=== PATIENT | female | born 1990 | race Caucasian/White ===

== ENCOUNTER 2023-03-03 11:34 | Outpatient (CLI) | payer BC, SELFPAY ==
[2023-03-08 07:22] LABS: Progesterone 15.2 ng/mL (***)
== END 2023-03-03 11:35 | disposition home or self-care (01) ==
PROVIDERS: Visit Provider Obstetrics & Gynecology
DX: Z34.91 Encounter for supervision of normal pregnancy, unspecified, first trimester (principal)
CPT/HCPCS: 36415; 84144; 84702

== ENCOUNTER 2023-08-16 16:38 | Outpatient (RCR) | payer BC, SELFPAY ==
[2023-08-19] MEDS: RHO(D) IMMUNE GLOBULIN 300 MCG/2 ML SYRINGE IM (13:39)
== END 2023-11-14 23:59 | disposition home or self-care (01) ==
LOC: ANHLAB 16:38
PROVIDERS: PCP Family Medicine; Visit Provider Obstetrics & Gynecology
DX: Z29.13 Encounter for prophylactic Rho(D) immune globulin (principal); O36.0190 Maternal care for anti-D [Rh] antibodies, unspecified trimester, not applicable or unspecified; Z3A.00 Weeks of gestation of pregnancy not specified
CPT/HCPCS: 36415; 85461; 86850; 86900; 86901; 90384; 96372; J2790

== ENCOUNTER 2023-10-04 10:47 | Outpatient (CLI) | payer BC, SELFPAY ==
[2023-10-04 11:12] VITALS: BP 137/78; PULSE 76
[2023-10-04 11:15] VITALS: BP 138/75; PULSE 78
[2023-10-04 11:18] LABS: Basophils Percent Auto 0.3 % (0.2-1.2); Eosinophils Percent Auto 0.5 % (0-4.4); Hematocrit 34.6 % (37.0-47.0); Hemoglobin 11.2 g/dL (12.0-15.0); Immature Granulocyte Absolute 0.02 K/mm3 (0.00-0.031); Immature Granulocyte Percent A 0.3 % (0-0.5); Lymphocytes Absolute Auto 1.11 K/mm3 (0.9-3.2); Lymphocytes Percent Auto 18.5 % (18.3-44.2); Mean Corpuscular HGB Conc 32.4 g/dl (32-36); Mean Corpuscular Hemoglobin 29.8 pg (26-34); Mean Platelet Volume 10.6 fl (7.4-10.4); Monocytes Absolute Auto 0.6 K/mm3 (0.1-0.6); Monocytes Percent Auto 9.2 % (2.6-8.5); Neutrophils Absolute Auto 4.3 K/mm3 (1.3-6.7); Neutrophils Percent Auto 71.2 % (45.5-73.1); Platelet Count Result 260 k/mm3 (150-375); Red Blood Count 3.76 M/mm3 (4.2-5.4); Red Cell Distribution Width 13.1 % (11.5-14.5)
[2023-10-04 11:20] LABS: Add Urine Microscopic? NO; Appearance Urine Clear (Clear); Bilirubin Urine Negative (Negative); Blood Urine Negative (Negative); Color Urine Yellow (Yellow); Glucose Urine UA Negative (Negative); Ketones Urine Negative (Negative); Leukocyte Esterase Ur Negative LEU/UL (Negative); Nitrate Urine Negative (Negative); Protein Urine Negative (Negative); Specific Grav Ur 1.004 (1.001-1.035); Urobilinogen Urine 0.2 mg/dL (<2.0)
[2023-10-04 11:30] VITALS: BP 137/74; PULSE 79
[2023-10-04 11:38] LABS: Alanine Aminotransferase 15 U/L (6-35); Albumin Level 3.6 g/dL (3.5-5.1); Alkaline Phosphatase 87 U/L (38-126); Anion Gap 10 mmol/L (4-12); Aspartate Amino Transferase 26 U/L (14-36); Bilirubin,Total 0.3 mg/dL (0.2-1.3); Blood Urea Nitrogen 10 mg/dL (7-17); Calcium 8.5 mg/dL (8.4-10.2); Carbon Dioxide 23 mmol/L (22-30); Chloride 103 mmol/L (98-107); Estimated Glomerular Filt Rate > 60; Glucose 82 mg/dL (65-110); Potassium 3.5 mmol/L (3.4-5.0); Sodium 136 mmol/L (137-145); Uric Acid 3.8 mg/dL (2.5-7.5)
[2023-10-04 11:53] LABS: Creatinine Urine 24.7 mg/dL; Total Protein Urine Random 12 mg/dL; Ur Ttl Prot Creatinine Ratio 0.49 mg/mg (0-0.20)
[2023-10-04 12:00] VITALS: BP 135/82; PULSE 72
[2023-10-04 13:23] VITALS: BP 138/75; PULSE 71; BMI 29.2
== END 2023-10-04 12:15 | disposition home or self-care (01) ==
LOC: ANHOBOP 10:52 → ANHOBPP 10:56
PROVIDERS: PCP Family Medicine; Visit Provider Obstetrics & Gynecology
DX: O13.9 Gestational [pregnancy-induced] hypertension without significant proteinuria, unspecified trimester (principal)
CPT/HCPCS: 36415; 59025; 80053; 81003; 82570; 84156; 84550; 85025; 99199

== ENCOUNTER 2023-10-05 17:45 | Outpatient (CLI) | payer BC, SELFPAY ==
[2023-10-05 17:53] VITALS: BMI 29.2
[2023-10-05 18:06] LABS: Collection Time Urine 24 HOURS
[2023-10-05 19:05] LABS: Total Volume 24 Hour Urine 3000 ml
[2023-10-05 19:18] LABS: Total Protein Urine 24 Hr 270 mg/24hr (28-141); Total Protein Urine Random 9 mg/dL
[2023-10-05 19:19] LABS: Creatinine Urine 68.9 mg/dL; Patient Weight 216 Lbs
[2023-10-05 19:35] LABS: Creatinine Clearance Urine 141.5 ml/min (75-125); Total Volume 24 Hour Urine 3000 ml
== END 2023-10-05 17:46 | disposition home or self-care (01) ==
LOC: ANHOBOP 17:49
PROVIDERS: PCP Family Medicine; Visit Provider Obstetrics & Gynecology
DX: O13.9 Gestational [pregnancy-induced] hypertension without significant proteinuria, unspecified trimester (principal)
CPT/HCPCS: 81050; 82575; 84156

== ENCOUNTER 2023-10-19 15:55 | Outpatient (CLI) | payer BC, SELFPAY ==
[2023-10-19] VITALS (9 sets, daily range): BP systolic 124–140; BP diastolic 69–85; PULSE 68–77
[2023-10-19 16:39] LABS: Basophils Percent Auto 0.3 % (0.2-1.2); Eosinophils Absolute Auto 0.1 K/mm3 (0-0.3); Eosinophils Percent Auto 0.7 % (0-4.4); Hematocrit 32.2 % (37.0-47.0); Hemoglobin 10.6 g/dL (12.0-15.0); Immature Granulocyte Absolute 0.01 K/mm3 (0.00-0.031); Immature Granulocyte Percent A 0.1 % (0-0.5); Lymphocytes Absolute Auto 1.56 K/mm3 (0.9-3.2); Lymphocytes Percent Auto 22.3 % (18.3-44.2); Mean Corpuscular HGB Conc 32.9 g/dl (32-36); Mean Corpuscular Hemoglobin 29.1 pg (26-34); Mean Corpuscular Volume 88.5 fl (80-100); Mean Platelet Volume 10.6 fl (7.4-10.4); Monocytes Absolute Auto 0.7 K/mm3 (0.1-0.6); Monocytes Percent Auto 9.3 % (2.6-8.5); Neutrophils Absolute Auto 4.7 K/mm3 (1.3-6.7); Neutrophils Percent Auto 67.3 % (45.5-73.1); Platelet Count Result 250 k/mm3 (150-375); Red Blood Count 3.64 M/mm3 (4.2-5.4); Red Cell Distribution Width 12.9 % (11.5-14.5)
[2023-10-19 16:45] LABS: Add Urine Microscopic? YES; Appearance Urine Cloudy (Clear); Bacteria Urine 1+ /hpf; Bilirubin Urine Negative (Negative); Blood Urine Negative (Negative); Color Urine Yellow (Yellow); Glucose Urine UA Negative (Negative); Ketones Urine Negative (Negative); Leukocyte Esterase Ur 3+ LEU/UL (Negative); Need Manual Microscopic Reviewed; Nitrate Urine Negative (Negative); Non Pathogenic Casts 0-2; Protein Urine Negative (Negative); RBC Urine 0-2 /hpf (0-2); Specific Grav Ur 1.006 (1.001-1.035); Squamous Epithelial Cell Urine Many /hpf (Few); Urobilinogen Urine 0.2 mg/dL (<2.0); WBC Urine 0-5 /hpf (0-3)
[2023-10-19 16:56] LABS: Alanine Aminotransferase 12 U/L (6-35); Albumin Level 3.4 g/dL (3.5-5.1); Alkaline Phosphatase 96 U/L (38-126); Anion Gap 8 mmol/L (4-12); Aspartate Amino Transferase 27 U/L (14-36); Bilirubin,Total 0.2 mg/dL (0.2-1.3); Blood Urea Nitrogen 10 mg/dL (7-17); Calcium 8.6 mg/dL (8.4-10.2); Carbon Dioxide 20 mmol/L (22-30); Chloride 105 mmol/L (98-107); Estimated Glomerular Filt Rate > 60; Glucose 125 mg/dL (65-110); Potassium 3.6 mmol/L (3.4-5.0); Sodium 133 mmol/L (137-145)
[2023-10-19 18:03] LABS: Total Protein Urine Random 14 mg/dL; Ur Ttl Prot Creatinine Ratio 0.36 mg/mg (0-0.20)
== END 2023-10-19 18:10 | disposition home or self-care (01) ==
LOC: ANHOBOP 16:03 → ANHOBPP 16:04
PROVIDERS: PCP Family Medicine; Visit Provider Obstetrics & Gynecology
DX: O13.9 Gestational [pregnancy-induced] hypertension without significant proteinuria, unspecified trimester (principal); Z3A.00 Weeks of gestation of pregnancy not specified
CPT/HCPCS: 36415; 59025; 80053; 81001; 82570; 84156; 84550; 85025; 87086; 99199

== ENCOUNTER 2023-10-25 15:47 | Inpatient (IN) | payer BC, SELFPAY ==
[2023-10-25] VITALS (13 sets, daily range): BP systolic 133–159; BP diastolic 85–92; PULSE 65–90; TEMP 36.8–37.1; BMI 29.2
[2023-10-25 16:31] LABS: Basophils Percent Auto 0.3 % (0.2-1.2); Eosinophils Percent Auto 0.4 % (0-4.4); Hematocrit 34.9 % (37.0-47.0); Hemoglobin 11.5 g/dL (12.0-15.0); Immature Granulocyte Absolute 0.02 K/mm3 (0.00-0.031); Immature Granulocyte Percent A 0.3 % (0-0.5); Lymphocytes Absolute Auto 1.44 K/mm3 (0.9-3.2); Lymphocytes Percent Auto 18.9 % (18.3-44.2); Mean Corpuscular Volume 88.1 fl (80-100); Mean Platelet Volume 10.7 fl (7.4-10.4); Monocytes Absolute Auto 0.5 K/mm3 (0.1-0.6); Neutrophils Absolute Auto 5.7 K/mm3 (1.3-6.7); Neutrophils Percent Auto 74.1 % (45.5-73.1); Platelet Count Result 284 k/mm3 (150-375); Red Blood Count 3.96 M/mm3 (4.2-5.4); Red Cell Distribution Width 13.1 % (11.5-14.5); White Blood Count 7.6 K/mm3 (4.5-10.0)
[2023-10-25] MEDS: DINOPROSTONE 10 MG VAG INSERT VAGINAL (16:57)
--- NOTE | 2023-10-25 17:05 | P.PNAN_ITS ---
Anes - Eval Pre Procedure Procedure: Labor epidural Date/Time: 10/25/23 17:05 Surgeon: Blanca Preop Diagnosis: Abdominal pain with contractions Pre Op Diagnosis: IOL Patient Data Age: 32 Gender: F Height: 1.83 m Weight: 98 kg Last Vital Signs Pulse 90 10/25/23 16:45 BP 136/86 10/25/23 16:45 Allergies Allergy/AdvReac Type Severity Reaction Status Date / Time No Known Allergies Allergy Verified 08/19/23 13:39 Home Medications Medication Instructions Recorded Confirmed Type prenat.vits,yadira,ude-jbnl-yytqe 1 tablet 10/14/23 History Laboratory Tests 10/25/23 16:26 WBC 7.6 K/mm3 (4.5-10.0) RBC 3.96 L M/mm3 (4.2-5.4) Hgb 11.5 L g/dL (12.0-15.0) Hct 34.9 L % (37.0-47.0) MCV 88.1 fl (80-100) MCH 29.0 pg (26-34) MCHC 33.0 g/dl (32-36) RDW 13.1 % (11.5-14.5) Plt Count 284 k/mm3 (150-375) MPV 10.7 H fl (7.4-10.4) Immature Gran % (Auto) 0.3 % (0-0.5) Neut % (Auto) 74.1 H % (45.5-73.1) Lymph % (Auto) 18.9 % (18.3-44.2) [place] % (Auto) 6.0 % (2.6-8.5) Eos % (Auto) 0.4 % (0-4.4) Baso % (Auto) 0.3 % (0.2-1.2) Lymph # (Auto) 1.44 K/mm3 (0.9-3.2) [place] # (Auto) 0.5 K/mm3 (0.1-0.6) Eos # (Auto) 0.0 K/mm3 (0-0.3) Baso # (Auto) 0.0 K/mm3 (0.0-0.1) Abs Immat Gran (auto) 0.02 K/mm3 (0.00-0.031) Absolute Neuts (auto) 5.7 K/mm3 (1.3-6.7) Absolute Nucleated RBC 0.000 K/mm3 (0.0-0.012) Nucleated RBC % 0.0 % (0.0-0.2) RPR Pending HIV 1&2 Ab/P24 Ag 4thGn Pending Blood Type A Negative Antibody Screen Pending : gestational age HCG: positive Patient hx anesthesia problems: none Family hx anesthesia problems: none Results Review: All pre-operative results and documents have been reviewed as part of the pre- operative evaluation. [facility] Past Medical History Medical History Gestational hypertension Murmur Overweight (BMI 25.0-29.9) and not yet delivered Family History Family History Father Hypertension Social History Social History Smoking status: Never smoker Substance use: never Do You Feel Safe in your Home?: Yes Lack of Transportation: No Lack of Food: Never True Current Housing: I Have Housing Concerned About Future Housing: No Difficulty Paying Gas/Electric Bills: No Difficulty Paying for Meds: No Currently Unemployed: No Education: Bachelor's Degree Difficulty w/ Childcare or Family Care: No Spiritual care concerns: No Exam Day of Procedure 10/25/23 17:05 Patient weight: overweight Airway: Mallampati scale class II
[2023-10-25 17:26] LABS: HIV 1/2 Ab P24 Ag Result Negative (Negative)
[2023-10-25] MEDS: LACTATED RINGERS 1,000 ML 125 ML IV CONT (17:29)
[2023-10-25] MEDS: AMPICILLIN 2 GM/NS 100 ML 2 GM/100 ML BAG IVPB (17:29)
[2023-10-25 18:14] LABS: Rapid Plasma Reagin Non-Reactive (NonReactive)
[2023-10-25] MEDS: AMPICILLIN 1 GM/NS 50 ML 1 GM/50 ML BAG IVPB (21:32)
[2023-10-26] VITALS (149 sets, daily range): BP systolic 116–160; BP diastolic 64–100; PULSE 25–227; RESP 18; TEMP 36.3–37.1; O2SAT 84–100
[2023-10-26] MEDS: AMPICILLIN 1 GM/NS 50 ML 1 GM/50 ML BAG IVPB ×4 (01:37→13:33)
[2023-10-26] MEDS: OXYTOCIN 30 UNITS/NS 500 ML 30 UNITS/500 ML BAG IV CONT (05:34)
[2023-10-26] MEDS: LACTATED RINGERS 1,000 ML 125 ML IV CONT ×2 (07:50→09:24)
--- NOTE | 2023-10-26 09:21 | WPDOBADMIT ---
Obstetrics - Admit Note Admission Note: record reviewed. Additions to the history and/or subsequent changes in the physical findings follow. 32 y/o at 39 1/7 weeks here for induction of labor. Cervidil overnight, has been withdrawn. Now receiving oxytocin. Receiving ampicillin for GBS colonization. EFW 6# four weeks ago First baby born at 37 weeks, induced for HTN, weighing 6#13oz. Rh neg and rubella nonimmune. AVSS NST reactive TOCO: contractions irregularly ABD soft, nontender, gravid, vertex EXT nontender Cervix 2-3/50/-2. Vertex. AROM with clear fluid. IUPC placed. A: IUP at term, here for induction of labor. P: Oxytocin. Anticipate .
--- NOTE | 2023-10-26 12:22 | PM.OBPNLAB ---
Pain Control Date/time seen: 10/26/23 12:22 Comments: Comfortable with epidurdal. Pelvic Exam Dilation (cm): 4 Effacement (%): 50 station: -2 Contractions Contraction frequency: 3 Contraction pattern: Regular Status status: Category l Assessment and Plan Comments: Continue labor.
[2023-10-26] MEDS: ONDANSETRON INJ 4 MG/2 ML VIAL IV PUSH (15:25)
--- NOTE | 2023-10-26 16:03 | PM.OBPRVD ---
OB - Vaginal Delivery Note Procedure Delivery date: 10/26/23 Events: Positive Group B Strep (GBS) Induction method: Per Cervidil Protocol Delivery augmentation: Rupture of Membranes and Pitocin Delivery monitor: External FHT, External Uterine and Internal Uterine Route of delivery: Episiotomy description: None Laceration Description: Perineal - 2nd Degree Delivery repair: vicryl (3-0) Specimen: Yes Quantitative Blood Loss (ml): 220 Anesthesia type: Epidural Disposition: PACU Complications: None Narrative: 32 y/o at 39 1/7 weeks gestation who presented to the hospital for induction of labor. Cervidil was placed overnight, then withdrawn in the morning. She received ampicillin for GBS colonization. Oxytocin was administered intravenously. Amniotomy was performed with return of clear fluid. She received an epidural for pain control. Her labor progressed and her cervix dilated completely. She pushed with good effort and delivered the 's head to the perineum, followed by the body. The nose and mouth were bulb suctioned. After a delay, the cord was clamped and cut. The was handed off the field. Cord blood was collected. The placenta delivered spontaneously and was grossly normal in appearance. The usual 3 vessel cord was noted. A second degree midline perineal laceration was sustained. This was reapproximated using 3 0 Vicryl in the usual layered fashion. Excellent hemostasis resulted as did excellent reapproximation of the normal anatomy. Needle and instrument counts were correct. The patient was taken to recovery room in stable condition. The infant went to the nursery in stable condition. I was present and scrubbed for the entire delivery. Baby Date of : 10/26/23 Time of : 15:48 Gestational Age by Date: 39 gender: Male presentation: vertex position: Left Occiput Anterior Placenta delivery description: Spontaneous and Normal Configuration Cord Vessel Description: 3 Vessels and Delayed Cord Clamping score one minute: 8 score five minutes: 9
--- NOTE | 2023-10-26 16:03 | PM.OBDSVD ---
DS: Admitting Diagnosis Discharge Date 10/28/2023 <Chris Arenas MD - Last Filed: 10/28/23 07:16> Admitting Diagnosis IUP at 39 1/7 GBS colonization <Domenic Rios MD - Last Filed: 11/01/23 15:01> DS: Discharge Diagnosis Discharge Diagnosis (1) (normal spontaneous vaginal delivery): Code(s): O80 - Encounter for full-term uncomplicated delivery <Domenic Rios MD - Last Filed: 11/01/23 15:01> Status: Acute <Domenic Rios MD - Last Filed: 11/01/23 15:01> (2) GBS (group B Streptococcus carrier), +RV culture, currently : Code(s): O99.820 - Streptococcus B carrier state complicating <Domenic Rios MD - Last Filed: 11/01/23 15:01> Status: Acute <Domenic Rios MD - Last Filed: 11/01/23 15:01> OB - DS: Summary OB Procedures : None <Domenic Rios MD - Last Filed: 11/01/23 15:01> OB Procedures Intrapartum: Spontaneous Vag Delivery and GBS prophylaxis <Domenic Rios MD - Last Filed: 11/01/23 15:01> OB Procedures: : RHo (D) lg and Rubella lg <Domenic Rios MD - Last Filed: 11/01/23 15:01> Time Spent with Patient Time attestation: Total time spent providing and/or coordinating discharge services: <Domneic Rios MD - Last Filed: 11/01/23 15:01> DS: Data Data Completed and Pending Labs on day of discharge: Labs from last 24 hours 10/25/23 16:26 WBC 7.6 RBC 3.96 L Hgb 11.5 L Hct 34.9 L MCV 88.1 MCH 29.0 MCHC 33.0 RDW 13.1 Plt Count 284 MPV 10.7 H Immature Gran % (Auto) 0.3 Neut % (Auto) 74.1 H Lymph % (Auto) 18.9 [place] % (Auto) 6.0 Eos % (Auto) 0.4 Baso % (Auto) 0.3 Lymph # (Auto) 1.44 [place] # (Auto) 0.5 Eos # (Auto) 0.0 Baso # (Auto) 0.0 Abs Immat Gran (auto) 0.02 Absolute Neuts (auto) 5.7 Absolute Nucleated RBC 0.000 Nucleated RBC % 0.0 RPR Non-reactive HIV 1&2 Ab/P24 Ag 4thGn Negative Blood Type A Negative Antibody Screen Positive Antibody Identification Passive Due to RH Imm Glob Antigen Identification TNP GERRI, IgG Interpret Neg GERRI, Poly Interpret Not Performed GERRI, Complement Interp Negative <Domenic Rios MD - Last Filed: 11/01/23 15:01> Discharge Plan Discharge Attending physician on discharge: Domenic Rios <Domenic Rios MD - Last Filed: 11/01/23 15:01> Domenic Rios <Chris Arenas MD - Last Filed: 10/28/23 07:16> Consulting providers: Rasta Morales Jr.; Trina Johnson <Domenic Rios MD - Last Filed: 11/01/23 15:01> Discharging Clinician: Domenic Rios <Domenic Rios MD - Last Filed: 11/01/23 15:01> Domenic Rios <Chris Arenas MD - Last Filed: 10/28/23 07:16> Patient Disposition: Home, Self-Care <Domenic Rios MD - Last Filed: 11/01/23 15:01> Activity: pelvic rest <Domenic Rios MD - Last Filed: 11/01/23 15:01> pelvic rest <Chris Arenas MD - Last Filed: 10/28/23 07:16> Diet: regular <Domenic Rios MD - Last Filed: 11/01/23 15:01> regular <Chris Arenas MD - Last Filed: 10/28/23 07:16> Discharge Instructions: Call or return if temperature above 100.4? F, increased abdominal pain, increased vaginal bleeding or any new problems. Education: Mom and Baby Guide Given to: Mother Follow-Up: Call your delivering provider's office for an appointment to be seen in: 6 Weeks Mom and baby should come to the [facility] for the follow-up appointment. Appointment Date/Time: October 30, 2023 at 11:00 am What to expect at your follow-up visit: Physical Assessment Call [phone] if you are unable to keep your appointment time. BREAST CARE: * Wear a snug supportive bra. * For engorgement discomfort: Breast Feeding: * Apply warm moist washcloths * Express milk as needed to relieve e
[2023-10-26] MEDS: OXYTOCIN 30 UNITS/NS 500 ML 30 UNITS/500 ML BAG 125 UNITS IV CONT (16:29)
[2023-10-26] MEDS: WITCH HAZEL 40 PADS 1 PAD TOPICAL (18:54)
[2023-10-26] MEDS: BENZOCAINE 20% AER SPR (*SP) 56 GM CAN 1 SPRAY TOPICAL (18:54)
--- NOTE | 2023-10-26 19:17 | OBPPTRN ---
Patient transferred to post room #281 via wheelchair. Support person present. Oriented to unit, room, information board, rooming in, admission packet and security measures. Patient verbalizes understanding.
[2023-10-27] MEDS: IBUPROFEN 600 MG TABLET PO ×2 (01:46→13:06)
[2023-10-27 04:05] VITALS: BP 130/85; PULSE 69; RESP 16; TEMP 36.8; O2SAT 99
[2023-10-27 04:41] LABS: Hematocrit 28.4 % (37.0-47.0); Hemoglobin 9.2 g/dL (12.0-15.0)
[2023-10-27 07:25] VITALS: BP 132/86; PULSE 68; RESP 18; TEMP 36.6; O2SAT 99
[2023-10-27] MEDS: ACETAMINOPHEN 325 MG TABLET 650 MG PO ×2 (08:51→17:35)
[2023-10-27] MEDS: MULTIVIT/MIN/PREN/FOL AC/IRON TABLET 1 TAB PO (08:51)
[2023-10-27] MEDS: POLYSACCHARIDE IRON COMPLEX 150 MG CAPSULE PO ×2 (08:51→17:35)
[2023-10-27] MEDS: DOCUSATE SODIUM 100 MG CAPSULE PO ×2 (08:51→17:35)
--- NOTE | 2023-10-27 09:05 | PM.OBPNVD ---
OB - PN: Subj Subjective Date/time seen: 10/27/23 09:05 Patient comments: no complaints and pain well controlled baby status: doing well and nursing well OB - PN: Obj Data Labs 10/27/23 04:06 Labs: Laboratory Results - last 24 hr 10/27/23 04:06 Hgb 9.2 L Hct 28.4 L Blood Type A Negative Antibody Screen Negative Screen Negative Baby's Blood Type A pos Baby's GERRI Positive Doses of RhIg Required 1 OB - PN A/P Plan day: 1 Plan: routine care Time Spent With Patient Time: Total time spent is greater than 50% in coordination of care (as documented) at patient's floor/unit and/or counseling patient: Time with patient: less than 15 minutes Exam Const: General: cooperative, healthy appearing and comfortable Nutritional Appearance: average body habitus Orientation/consciousness: oriented to person, oriented to place and oriented to time Resp: Effort & Inspection: normal respiratory effort Cardio: Rate: regular rate Rhythm: regular rhythm Heart sounds: S1 normal heart sound present and S2 normal heart sound present GI: Inspection: normal to inspection
--- NOTE | 2023-10-27 10:30 | PC.NURSE ---
Introductions were made, then consulted with patient to assess needs related to . Mother led the conversation with her?plans to feed?her and the?experience so far. Mother states that she feels confident putting infant to breast and demonistated at bedside with this RN. Latch looks perfect, infant is currently cross cradle on the left breast. Encouraged understanding of the benefits of skin to skin, stimulating with massage touch, changing positions to encourage wakefulness, how to watch for early feeding cues, responsive feeding, feeding on demand (aiming for 8-12 times in 24 hours, about every 2-3 hours), milk production, building/maintaining a milk supply, duration of feeding, signs of adequate intake/output and how to record on the feeding sheet. Mother asked about limiting feeding time- discussed that she should not limit feedings until baby is at weight, her mature milk has come in and is feeding well with every feed. Discussed that frequent feedings in the early days is the best for her milk production and for infant. Reviewed comfort measures of healing with a warm, wet washcloth to rinse breast, then leave open to air-dry, good handwashing when or touching the breast/nipples to prevent infection. Mother voiced understanding of skin to skin, stimulating with massage touch, responsive feedings, hand expressed colostrum, talking to infant to encourage if it has been 2 -2.5 hours since the start of the last , to call if does not latch, or if there is discomfort with . Communication board updated. Parents voiced understanding of information, demonstrated learning and will call if there is a request for assistance. Reported to the Primary RN.
[2023-10-27 12:01] VITALS: BP 131/68; PULSE 71; RESP 18; TEMP 36.8; O2SAT 100
[2023-10-27] MEDS: RHO(D) IMMUNE GLOBULIN 300 MCG/2 ML SYRINGE IM (13:07)
[2023-10-27 15:40] VITALS: BP 132/71; PULSE 77
[2023-10-27 18:40] VITALS: BP 140/89; PULSE 66; RESP 18; TEMP 36.6
[2023-10-27 23:00] VITALS: BP 130/75; PULSE 70
[2023-10-28 03:21] VITALS: BP 137/75; PULSE 74
--- NOTE | 2023-10-28 07:16 | PM.OBPNVD ---
OB - PN: Subj Subjective Date/time seen: 10/28/23 07:16 Patient comments: no complaints and pain well controlled baby status: doing well and nursing well OB - PN: Obj Data Labs 10/27/23 04:06 Labs: Laboratory Results - last 24 hr 10/27/23 04:06 Blood Type A Negative Antibody Screen Negative Screen Negative Baby's Blood Type A pos Baby's GERRI Positive Doses of RhIg Required 1 OB - PN A/P Plan day: 2 Plan: routine care, discharge home and follow up 6 weeks Time Spent With Patient Time: Total time spent is greater than 50% in coordination of care (as documented) at patient's floor/unit and/or counseling patient: Time with patient: less than 15 minutes Exam Const: General: cooperative, healthy appearing and comfortable Nutritional Appearance: average body habitus Orientation/consciousness: oriented to person, oriented to place and oriented to time Resp: Effort & Inspection: normal respiratory effort Cardio: Rate: regular rate Rhythm: regular rhythm Heart sounds: S1 normal heart sound present and S2 normal heart sound present GI: Inspection: normal to inspection
[2023-10-28 07:30] VITALS: BP 134/87; PULSE 65; RESP 16; TEMP 36.8; O2SAT 98
[2023-10-28] MEDS: MEASLES,MUMPS,RUBELLA VACCINE 0.5 ML VIAL SUB-Q (07:37)
[2023-10-28] MEDS: POLYSACCHARIDE IRON COMPLEX 150 MG CAPSULE PO (07:39)
[2023-10-28] MEDS: DOCUSATE SODIUM 100 MG CAPSULE PO (07:39)
[2023-10-28] MEDS: MULTIVIT/MIN/PREN/FOL AC/IRON TABLET 1 TAB PO (07:40)
[2023-10-28] MEDS: IBUPROFEN 600 MG TABLET PO (07:40)
[2023-10-28] MEDS: INFLUENZA TRIVALENT VACCINE 45 MCG/0.5 ML SYRINGE IM (09:46)
--- NOTE | 2023-10-28 10:15 | WPDANLDPN2 ---
Anes-Prog Note L&D Date/Time: 10/28/23 10:15 Comfortable throughout: labor and delivery Neuraxial method: epidural Epidural/Spinal procedure site: clean & non-tender Neuro status: Neuro function grossly intact. Cardiovascular status: normal Respiratory status: normal Airway patency: baseline Mental status: baseline Post-Op hydration status: normal Vital Signs: Last Vital Signs Temp 98.3 F 10/28/23 07:30 Pulse 65 10/28/23 07:30 Resp 16 10/28/23 07:30 BP 134/87 10/28/23 07:30 Pulse Ox 98 10/28/23 07:30 O2 Del Method Room Air 10/27/23 18:40 Pain score (VAS): 0 I/O: Intake & Output 10/27/23 10/28/23 10/28/23 23:59 07:59 15:59 Intake Total 400 1100 Output Total 1500 Balance 400 -400 Post-procedural complaints: none Patient feedback: Patient satisfied with anesthetic care. pt states she experienced an apparent left groin hotspot unrelieved with repositioning. states right sided affects of epidural much more profound. despite unresolved area of pain pt satisfied with epidural.
--- NOTE | 2023-10-28 10:56 | PC.NURSE ---
Patient instructed on viewing the discharge video Mother & Baby Care, The First Two Weeks . Patient was given the opportunity and encouraged to ask questions. Patient verbalized understanding of information shared and has been given the mother/baby guide for home reference.
== END 2023-10-28 12:05 | disposition home or self-care (01) | DRG 807 ==
LOC: ANHLDR 10-26 17:40 → ANHOB2 10-28 10:02 → ANHLDR 10-30 11:24 → ANHOB2 10-30 11:24
PROVIDERS: Admitting Provider Obstetrics & Gynecology; PCP Family Medicine; Visit Provider Obstetrics & Gynecology
DX: O13.4 Gestational [pregnancy-induced] hypertension without significant proteinuria, complicating childbirth (principal); Z37.0 Single live birth; Z3A.39 39 weeks gestation of pregnancy; O99.824 Streptococcus B carrier state complicating childbirth; O70.1 Second degree perineal laceration during delivery; Z23 Encounter for immunization
CPT/HCPCS: 36415; 85014; 85018; 85025; 85461; 86592; 86703; 86850; 86880; 86900; 86901; 86902; 90384; 90471; 90656; 90710; A9270; G0008; G0432; J0290; J2405; J2590; J2790; J2795; J7120